=== PATIENT | female | born 1980 | race Caucasian/White ===

== ENCOUNTER 2021-03-15 16:16 | Observation (INO) | payer BC, OTHER ==
[~2021-03-15] VITALS: Ht 170.2 cm; Wt 66.7 kg
[2021-03-15] MEDS ORDERED: SODIUM CHLORIDE 0.9% 1000ML 1,000 ML IV STA (16:27)
[2021-03-15] MEDS ORDERED: ONDANSETRON HCL INJ 2MG/ML 2ML 2 MG/ML VIAL IV NR (16:30)
[2021-03-15] MEDS ORDERED: MORPHINE SULFATE INJ 4 MG/ML INJ 1ML IV ONE (16:45)
[2021-03-15 16:48] LABS: BASOPHILS % 0.4 % (0.0-1.0); EOSINOPHILS # (AUTO) 0.1 (0.0-0.4); EOSINOPHILS % 1.1 % (0.0-6.0); HEMATOCRIT 36.7 % (34.2-44.1); LYMPHOCYTES # (AUTO) 1.1 (1.0-3.2); LYMPHOCYTES % 10.1 % (18.0-39.1); MEAN CORPUSCULAR HEMOGLOBIN 29.1 pg (28-32); MEAN CORPUSCULAR HGB CONC 32.7 g/dL (31-35); MEAN CORPUSCULAR VOLUME 88.9 fL (81-99); MONOCYTES # (AUTO) 0.6 (0.2-0.8); MONOCYTES % 5.5 % (4.4-11.3); NEUTROPHILS % 82.4 % (38.7-80.0); PLATELET COUNT 233 x10e3/uL (140-360); RED BLOOD COUNT 4.13 x10e6/uL (3.6-5.1)
[2021-03-15 17:00] LABS: AMPHETAMINES SCREEN,URINE NEGATIVE (NEGATIVE); BENZODIAZEPINES SCREEN,URINE NEGATIVE (NEGATIVE); CLARITY,URINE CLEAR (CLEAR); COLOR,URINE YELLOW (YELLOW); LEUKOCYTE ESTERASE ,URINE NEGATIVE (NEGATIVE); NITRITE,URINE NEGATIVE (NEGATIVE); PHENCYCLIDINE SCREEN,URINE NEGATIVE (NEGATIVE); PROTEIN,URINE DIPSTICK NEGATIVE (NEGATIVE)
[2021-03-15 17:01] LABS: KETONES,URINE 2+ (NEGATIVE); URINE UROBILINOGEN 0.2 mg/dL (0.2 - 1)
[2021-03-15 17:07] LABS: ALANINE AMINOTRANSFERASE 13 IU/L (0-55); ALBUMIN 3.8 g/dL (3.5-5.0); ALBUMIN/GLOBULIN RATIO 1.1 (0.8-2.0); ALKALINE PHOSPHATASE 50 IU/L (40-150); AMYLASE 43 U/L (25-125); ANION GAP 10.5 mmol/L (8-16); BACTERIA,URINE MODERATE /HPF; BLOOD UREA NITROGEN 8 mg/dL (7-26); BUN/CREATININE RATIO 11 (6-25); CALCIUM 8.6 mg/dL (8.4-10.2); CARBON DIOXIDE 24 mmol/L (22-29); CHLORIDE 106 mmol/L (98-107); CREATINE KINASE 45 IU/L (29-168); EST GLOMERULAR FILTRATION RATE 94 ML/MIN (60-); GLUCOSE 100 mg/dL (74-118); LIPASE 16 U/L (8-78); MAGNESIUM 1.8 MG/DL (1.3-2.1); POTASSIUM 3.5 mmol/L (3.5-5.1); RBC,URINE 0-5 /HPF (0-5); SODIUM 137 mmol/L (136-145); WBC,URINE (MAN) 0-5 /HPF (0-5)
[2021-03-15 17:08] LABS: EPITHELIAL CELLS,URINE MANY /LPF
[2021-03-15] MEDS ORDERED: KETOROLAC TROMETHAMINE 30 MG/ML VIAL IV STA (17:30)
[2021-03-15] MEDS ORDERED: SODIUM CHLORIDE 0.9% 50ML 50 ML ONE ×2 (17:32→19:30)
[2021-03-15] MEDS ORDERED: IOPAMIDOL 370 MG/ML 200 ML INFUS..BTL INJ ONE (17:33)
[2021-03-15] MEDS ORDERED: ONDANSETRON HCL INJ 2MG/ML 2ML 2 MG/ML VIAL IV PRN (18:15)
[2021-03-15] MEDS ORDERED: MORPHINE SULFATE INJ 4 MG/ML INJ 1ML IV PRN (18:15)
[2021-03-15] MEDS ORDERED: PIPERACILLIN/TAZOBACTAM 3.375 GM in SODIUM CHLORIDE 0.9% 50ML 50 ML IV ONE (18:30)
[2021-03-15] MEDS: D5.45%NS/KCL 20MEQ 1,000 ML IV SCH (19:23)
[2021-03-15 19:28] VITALS: BP 95/66
[2021-03-15 19:50] VITALS: BP 95/66
[2021-03-15] MEDS ORDERED: VENTOLIN HFA18 GM INH (21:07)
[2021-03-15] MEDS ORDERED: ALBUTEROL0.63 MG/3 NEB (21:33)
[2021-03-15] MEDS ORDERED: ALBUTEROL SULF 0.083% NEB SOLN 3 ML NEB NEB PRN (21:45)
[2021-03-15] MEDS ORDERED: ALBUTEROL SULFATE HFA 8GM INHALATION AEROSOL INH PRN (21:45)
[2021-03-15 22:22] VITALS: BP 95/66
[2021-03-16] VITALS (8 sets, daily range): BP systolic 88–99; BP diastolic 50–71
[2021-03-16] MEDS: PIPERACILLIN/TAZOBACTAM 3.375 GM in SODIUM CHLORIDE 0.9% 50ML 50 ML IV SCH ×4 (04:00→23:48)
[2021-03-16] MEDS: D5.45%NS/KCL 20MEQ 1,000 ML IV SCH ×3 (04:04→19:23)
[2021-03-16] MEDS ORDERED: BUPIVACAINE 0.25% 30ML SDV ONE (11:31)
[2021-03-16] MEDS ORDERED: PIPERACILLIN/TAZOBACTAM 3.375 GM VIAL ONE (11:53)
[2021-03-16] MEDS ORDERED: SODIUM CHLORIDE 0.9% 50ML 0 ML ONE (11:53)
[2021-03-16] MEDS ORDERED: HYDROMORPHONE 1MG/1ML INJ IV PRN (12:45)
[2021-03-16] MEDS ORDERED: HYDROCODONE/APAP 7.5MG-325MG 1 EA TAB PO PRN (12:45)
[2021-03-16] MEDS ORDERED: MEPERIDINE HCL INJ 25 MG/ML VIAL ONE (12:48)
[2021-03-16] MEDS ORDERED: ONDANSETRON HCL INJ 2MG/ML 2ML 2 MG/ML VIAL ONE (13:01)
[2021-03-16] MEDS: HYDROMORPHONE 1MG/1ML INJ IV PRN (21:52)
[2021-03-17 00:38] VITALS: BP 84/52
[2021-03-17] MEDS: D5.45%NS/KCL 20MEQ 1,000 ML IV SCH ×2 (03:07→10:26)
[2021-03-17 05:18] VITALS: BP 88/54
[2021-03-17] MEDS: PIPERACILLIN/TAZOBACTAM 3.375 GM in SODIUM CHLORIDE 0.9% 50ML 50 ML IV SCH ×2 (05:57→14:00)
[2021-03-17 06:14] VITALS: BP 97/54
[2021-03-17] MEDS: HYDROMORPHONE 1MG/1ML INJ IV PRN ×3 (06:14→12:50)
[2021-03-17 06:23] LABS: BASOPHILS % 0.2 % (0.0-1.0); HEMATOCRIT 31.6 % (34.2-44.1); HEMOGLOBIN 10.2 g/dL (12.0-16.0); LYMPHOCYTES # (AUTO) 0.9 (1.0-3.2); LYMPHOCYTES % 14.1 % (18.0-39.1); MEAN CORPUSCULAR HEMOGLOBIN 29.1 pg (28-32); MEAN CORPUSCULAR HGB CONC 32.3 g/dL (31-35); MONOCYTES # (AUTO) 0.5 (0.2-0.8); MONOCYTES % 7.4 % (4.4-11.3); NEUTROPHILS # (AUTO) 5.1 (2.1-6.9); NEUTROPHILS % 78.1 % (38.7-80.0); PLATELET COUNT 186 x10e3/uL (140-360); RED BLOOD COUNT 3.51 x10e6/uL (3.6-5.1); RED CELL DISTRIBUTION WIDTH 13.4 % (11.7-14.4)
[2021-03-17 06:48] LABS: ANION GAP 10.1 mmol/L (8-16); BLOOD UREA NITROGEN < 5 mg/dL (7-26); BUN/CREATININE RATIO 8 (6-25); CALCIUM 7.7 mg/dL (8.4-10.2); CARBON DIOXIDE 23 mmol/L (22-29); CHLORIDE 110 mmol/L (98-107); CREATININE, SERUM 0.63 mg/dL (0.57-1.11); EST GLOMERULAR FILTRATION RATE 106 ML/MIN (60-); GLUCOSE 128 mg/dL (74-118); POTASSIUM 4.1 mmol/L (3.5-5.1); SODIUM 139 mmol/L (136-145)
[2021-03-17 07:58] VITALS: BP 93/60
[2021-03-17 08:09] VITALS: BP 93/60
[2021-03-17 11:52] VITALS: BP 106/67
[2021-03-17] MEDS ORDERED: Tylenol #3 PO (13:06)
[2021-03-17] MEDS ORDERED: LEVOFLOXACIN250 MG PO (13:07)
[2021-03-17] MEDS ORDERED: ONDANSETRON HCL 4 MG ORAL DISINTEGRATING TAB PO PRN (14:00)
== END 2021-03-17 14:26 | disposition home or self-care (01) ==
LOC: ER 16:35 → ERHOLD 18:06 → MED/SURG 19:29
PROVIDERS: ADMIT Surgery; ATTEND Surgery
DX: K35.80 Unspecified acute appendicitis (principal); Z90.49 Acquired absence of other specified parts of digestive tract; Z20.822 Contact with and (suspected) exposure to COVID-19
CPT/HCPCS: 36415 ×2; 44970; 74177; 80048; 80053; 80307; 81001; 82150; 82550; 82553; 83690; 83735; 84484; 84702; 85025 ×2; 87086; 88304; 93005; 96360; 99284; C1766; C9113; G0378 ×3; J1170 ×2; J1885; J2175; J2270 ×2; J2405 ×2; J2543 ×3; J7030; Q9967; U0002